=== PATIENT | male | born 1985 | race Hispanic/Latino ===

== ENCOUNTER 2025-01-17 14:30 | Emergency (ER) | payer SELFPAY ==
[~2025-01-17] VITALS: Ht 177.8 cm; Wt 95.3 kg
[2025-01-17 14:49] VITALS: BP 133/86; PULSE 60; RESP 18; TEMP 97.9; O2SAT 98
[2025-01-17] MEDS ORDERED: CLIN-141 PO (14:50)
--- NOTE | 2025-01-17 14:51 | ERN ---
ED Note History of Present Illness Stated Complaint: RASH Chief Complaint: Eye Problems Time Seen by MD: 14:43 Dictation: THIS IS A 39-YEAR-OLD MALE COMING IN TODAY WITH BILATERAL UPPER EYELID ERYTHEMA MILD WITH SWELLING HE HAS HAD FOR 3-4 DAYS. HE DENIES ANY HISTORY OF RECENT WELDING EXPOSURE TO THE SUN CHEMICALS ETC.. DOES NOT WEAR CONTACTS OR GLASSES. STATES HE HAS NO PRIMARY CARE DOCTOR. DENIES ANY VISION CHANGES. NO FEVER NO CHILLS Allergies: Coded Allergies: No Known Drug Allergies (Unverified Allergy, Unknown, 01/17/25) Past Medical History Past Medical History: No Pertinent History Surgical History: None RN Note Reviewed/Agreed w/PFSH: Yes Review of System Dictation CONSTITUTIONAL: NEGATIVE EXCEPT FOR HPI HEAD/FACE: NEGATIVE EXCEPT FOR HPI EENT: NEGATIVE EXCEPT FOR HPI BILATERAL UPPER EYELID SWELLING ERYTHEMA RESPIRATORY: NEGATIVE EXCEPT FOR HPI GASTROINTESTINAL/ABDOMINAL: NEGATIVE EXCEPT FOR HPI GENITOURINARY: NEGATIVE EXCEPT FOR HPI MUSCULOSKELETAL: NEGATIVE EXCEPT FOR HPI INTEGUMENTARY: NEGATIVE EXCEPT FOR HPI NEUROLOGICAL/PSYCH: NEGATIVE EXCEPT FOR HPI HEMATOLOGIC/LYMPHATIC: NEGATIVE EXCEPT FOR HPI ALL SYSTEMS NEGATIVE, EXCEPT NOTED ABOVE. 13 POINT REVIEW OF SYSTEMS ASSESSED AND ALL NEGATIVE EXCEPT FOR ABOVE. Initial Vital Sign VS Vital Signs Date Time Temp Pulse Resp B/P (MAP) Pulse Ox O2 Delivery O2 Flow Rate FiO2 01/17/25 14:36 97.9 60 18 133/86 98 Room Air 0 Physical Exam Dictation VITAL SIGNS REVIEWED GENERAL APPEARANCE: ALERT, ORIENTED X 3, NO ACUTE DISTRESS, WELL DEVELOPED, NOURISHED. HEAD AND FACE: NON-TRAUMATIC. EYES: PERRL, PINK CONJUNCTIVAS, MILD BILATERAL UPPER PALPEBRAL FOLD ERYTHEMA. EOMS INTACT CONJUNCTIVA INTACT EARS: PINNAS INTACT AND NO SIGNS OF TRAUMA OR ERYTHEMA EAR CANALS CLEAR AND NO DISCHARGE TM NO ERYTHEMA NOSE: NO DISCHARGE, NO BLEEDING. OROPHARYNX: MOUTH NORMAL, TONGUE PINK, PHARYNX CLEAR,NO ERYTHEMA, TONSILS NO EXUDATES, NO ABSCESSES NOTED, MUCOUS MEMBRANE MOIST NECK: SUPPLE, NON-TENDER, NO THYROMEGALY, NO MASSES, NO JVD, NO BRUITS BREAST:DEFERRED CHEST:NO TENDERNESS, NO CREPITUS, NO PARADOXICAL MOVEMENT, NO RETRACTIONS LUNGS:CLEAR, WELL-VENTILATED, SYMMETRIC, NO RALES, NO WHEEZING, NO RHONCHI, NO STRIDOR, GOOD BREATH SOUNDS BILATERALLY HEART: REGULAR RATE, REGULAR RHYTHM, NO MURMUR, NO GALLOPS VASCULAR: NO PERIPHERAL EDEMA, ABDOMEN: SOFT, POSITIVE BOWEL SOUNDS, NONDISTENDED, NO GUARDING, NONTENDER, NO REBOUND, NO MASSES NO HEPATOMEGALY, NO SPLENOMEGALY, NO GUTIERREZ'S SIGN, NO HERNIAS. RECTAL: DEFERRED GENITAL: DEFERRED NEUROLOGICAL: NORMAL SPEECH, MOTOR FUNCTION INTACT, SENSORY FUNCTION INTACT MUSCULOSKELETAL: NECK NONTENDER, FULL RANGE OF MOTION, BACK NONTENDER, FULL RANGE OF MOTION, EXTREMITIES: NONTENDER, FULL RANGE OF MOTION SKIN: COLOR PINK, DRY, NO TURGOR, NO RASH, NO LACERATIONS, NO ABRASIONS, NO CONTUSIONS. LYMPHATIC: DEFERRED Results (Laboratory/Radiology) Labs Reviewed?: Yes ED Course ED Course Vital Signs Date Time Temp Pulse Resp B/P (MAP) Pulse Ox O2 Delivery O2 Flow Rate FiO2 01/17/25 14:36 97.9 60 18 133/86 98 Room Air 0 1448/PATIENT WILL BE PROVIDED WITH CLINDAMYCIN WITHOUT ANY IMAGING OR LABS. HE WILL BE TOLD THAT IN THE NEXT 48 HOURS IF NO IMPROVEMENT TO GO TO [facility] FOR MANAGEMENT. Medical Decision Making MDM MEDICAL DECISION-MAKING BASED ON EMPIRIC TREATMENT FOR UPPER EYELID ERYTHEMA PRESCRIBED CLINDAMYCIN , PROVIDED THE NAME OF [facility] IF NO IMPROVEMENT IN 24-48 HOURS. DX & DISP Disposition: Discharge Departure Impression: Primary Impression: Swelling of right upper eyelid Additional Impression: Swelling of left upper eyelid Condition: Stable Scripts Clindamycin HCl (Clindamycin HCl) 300 Mg Capsule 1 CAP PO QID for 10 Days, #40 CAP 0 Refills TAKE TWO TABLETS BY MOUTH 1ST DOSE, THEN ONE TABLET EVERY 6 HOURS UNTIL DOSES GONE. Prov: DICK MYRICK CASTING OPERATOR HELPER 01/17/25 Additional Instructions: FOLLOW-UP WITH PRIMARY CARE PROVIDER IN 1 TO 2 DAYS. TAKE MEDICATIONS DIRECTED HERE IN THE EMERGENCY ROOM. OKAY TO CONTINUE HOME MEDICATIONS UNLESS OTHERWISE DISCUSSED DURING YOUR VISIT IN THE EMERGENCY ROOM TODAY. RETURN TO YOUR NEAREST EMERGENCY ROOM IF SYMPTOMS WORSEN OR IF THERE IS NO IMPROVEMENT. CALL 911 IF YOU NEED IMMEDIATE ASSISTANCE. TAKE TYLENOL OR MOTRIN [id number] NEEDED AND IF NO CONTRAINDICATIONS ARE PRESENT. INCREASE ORAL HYDRATION. A WOUND CULTURE OR URINE CULTURE WAS ORDERED HERE IN THE EMERGENCY ROOM DEPARTMENT PLEASE FOLLOW-UP WITH PRIMARY CARE PROVIDER AND ADVISE THEM TO GET REPEAT PORTS FROM OUR FACILITY. IF YOU HAD ANY CYNTHIA WRAP/SPLINTS THAT WERE APPLIED HERE, PLEASE DO NOT REMOVE THEM UNTIL YOU SEE YOUR PRIMARY CARE OR SPECIALTY. TAKE CLINDAMYCIN DIRECTED UNTIL GONE. FIRST DOSE WE WILL BE TWO CAPSULES FOLLOW UP BY ONE CAPSULE EVERY 6 HOURS. CALL [facility] IN THE NEXT 48 HOURS IF NO IMPROVEMENT LOOKING YELLOW PAGES FOR PHONE NUMBER. IN [facility] Referrals: SELF,REFERRAL (PCP) Time of Disposition: 14:50 I have reviewed the case, and I agree with, Diagnosis and Plan DICK MYRICK CASTING OPERATOR HELPER Jan 17, 2025 14:51
== END 2025-01-17 15:22 | disposition home or self-care (01) ==
LOC: EDH 14:30
DX: H02.841 Edema of right upper eyelid (principal); H02.844 Edema of left upper eyelid
CPT/HCPCS: 99283